=== PATIENT | male | born 2000 | race Caucasian/White ===

== ENCOUNTER 2020-04-26 19:03 | Emergency (ER) | payer SELFPAY ==
[2020-04-26 19:29] VITALS: BP 136/84; PULSE 62; RESP 20; TEMP 36.9; O2SAT 99; BMI 22.1
--- NOTE | 2020-04-26 19:40 | PC.NURSE ---
MD CAMACHO AT BEDSIDE FOR FAST EXAM. CCOLLAR APPLIED TO PT FOR REPORTS OF CERVICAL TENDERNESS. DEFORMITY AND REDNESS NOTED TO RIGHT VELASCO. PT DENIES ABD TENDERNESS. FAST NEGATIVE PER .
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
--- NOTE | 2020-04-26 19:45 | PC.NURSE ---
IV ACCESS OBTAINED, BLOOD DRAWN AND SENT TO LAB FOR PROCESSING. IVF HUNG AND INFUSING WITHOUT DIFFICULTY. PCT AT BEDSIDE TO CLEAN WOUNDS, PT AWAITING PAIN SLITTER AND REWINDER AND FURTHER TESTING. AWARE OF PLAN OF CARE.
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
[2020-04-26] MEDS: Morphine Sulfate 2 MG/ML CARTRIDGE IVPUSH ×2 (19:55→21:21)
[2020-04-26] MEDS: 0.9 % Sodium Chloride 500 ML 999 ML IVCONT (19:55)
--- NOTE | 2020-04-26 19:56 | PC.NURSE ---
PT MEDICATED PER SEP. AWAITING CT SCAN AND XRAY.
--- NOTE | 2020-04-26 20:01 | PC.NURSE ---
PT OFF FLOOR FOR XRAY AND CT.
[2020-04-26 20:22] LABS: Alanine Aminotransferase 17 U/L (0-40); Albumin Level 4.6 g/dL (3.5-5.0); Alkaline Phosphatase 67 U/L (39-117); Anion Gap 14 (12-20); Aspartate Amino Transferase 30 U/L (5-37); Bilirubin Direct 0.3 mg/dL (0.0-0.5); Bilirubin Total 0.7 mg/dL (0.0-1.0); Blood Urea Nitrogen 13 mg/dL (9-16); Calcium 9.1 mg/dL (8.4-10.2); Carbon Dioxide 27 mmol/L (22-29); Chloride 103 mmol/L (96-108); Creatinine Clr Calc Pharmacy 82.1; Estimated Glomerular Filt Rate > 60; Glucose Random 97 mg/dL (60-115); Lipase 6 U/L (8-78); Potassium 4.1 mmol/l (3.3-5.1); Sodium 140 mmol/L (135-145); Total Protein 7.6 g/dL (6.5-8.0)
[2020-04-26 20:45] VITALS: BP 126/70; PULSE 67; RESP 18; O2SAT 100
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
--- NOTE | 2020-04-26 21:23 | PC.NURSE ---
PT MEDIATE PER MAR FOR RLE PAIN. AWAITING RESULTS AND MD REEVAL. VSS.
[2020-04-26 21:25] VITALS: BP 139/77; PULSE 67; RESP 16; TEMP 36.8; O2SAT 98
--- NOTE | 2020-04-26 21:50 | PC.NURSE ---
CCOLLAR REMOVED, NEGATIVE RESULTS.
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
--- NOTE | 2020-04-26 22:32 | PC.NURSE ---
PCT AT BEDSIDE DRESSING WOUNDS AND PROVIDING CRUTCHES AND EDUCATION. PT AWAITING DC HOME.
== END 2020-04-26 23:50 | disposition home or self-care (01) ==
PROVIDERS: Emergency Provider Emergency Medicine; PCP Pediatrics
DX: S06.0X0A Concussion without loss of consciousness, initial encounter (principal); G44.309 Post-traumatic headache, unspecified, not intractable; M54.2 Cervicalgia; M79.601 Pain in right arm; M25.561 Pain in right knee; V23.4XXA Motorcycle driver injured in collision with car, pick-up truck or van in traffic accident, initial encounter; Y93.9 Activity, unspecified; Y92.410 Unspecified street and highway as the place of occurrence of the external cause; Y99.9 Unspecified external cause status
CPT/HCPCS: 36415; 70450; 70486; 71250; 72125; 73130; 73560; 73590; 74176; 80048; 80076; 83690; 96374; 96376; 99284; 99291; J2270

== ENCOUNTER 2022-03-04 22:16 | Emergency (ER) | payer OTHER, SELFPAY ==
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
[2022-03-04 22:25] VITALS: BP 128/64; BP 134/71; PULSE 68; PULSE 79; RESP 18; TEMP 36.8; O2SAT 98; BMI 44.2
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
[2022-03-05 00:33] VITALS: BP 132/74; PULSE 81; RESP 18; O2SAT 98
== END 2022-03-05 00:57 | disposition home or self-care (01) ==
PROVIDERS: Emergency Provider Internal Medicine
DX: S39.012A Strain of muscle, fascia and tendon of lower back, initial encounter (principal); S29.012A Strain of muscle and tendon of back wall of thorax, initial encounter; V43.62XA Car passenger injured in collision with other type car in traffic accident, initial encounter; F12.90 Cannabis use, unspecified, uncomplicated; Y93.9 Activity, unspecified; Y92.410 Unspecified street and highway as the place of occurrence of the external cause; Y99.9 Unspecified external cause status
CPT/HCPCS: 70450; 72070; 72100; 72125; 99284